=== PATIENT | female | born 1990 | race Caucasian/White ===

== ENCOUNTER → 2016-12-10 | Outpatient (CLI) | payer OTHER, SELFPAY ==
[2016-12-10 04:05] LABS: FREE T4 0.94 NG/DL (0.76-1.46)
[2016-12-12 10:44] LABS: PROLACTIN 5.5 NG/ML
[2016-12-12 10:45] LABS: LUTEINIZING HORMONE 0.8 mIU/mL
[2016-12-12 10:46] LABS: ESTRADIOL < 19.0 PG/ML; FOLLICLE STIMULATING HORMONE 2.7 mIU/mL
== END ==
LOC: M LAB 02:10
PROVIDERS: ATTEND Advanced Practice Midwife
DX: N92.0 Excessive and frequent menstruation with regular cycle (principal)

== ENCOUNTER → 2016-12-31 | Outpatient (CLI) | payer OTHER | LOC: M LAB 08:59 | PROVIDERS: ATTEND Advanced Practice Midwife | DX: N92.0 Excessive and frequent menstruation with regular cycle (principal) ==

== ENCOUNTER → 2017-10-20 | Outpatient (REF) | payer BC | LOC: M LAB REF 12:06 | DX: R05 Cough (principal) | CPT/HCPCS: 87633 ==

== ENCOUNTER → 2021-12-15 | Outpatient (CLI) | payer BC | LOC: M LABSMTC 11:28 | PROVIDERS: ATTEND Pediatrics | DX: Z20.822 Contact with and (suspected) exposure to COVID-19 (principal) | CPT/HCPCS: C9803; U0003 ==

== ENCOUNTER → 2024-09-09 | Outpatient (CLI) | payer OTHER | LOC: M SOG 07:51 | PROVIDERS: ATTEND Physician Assistant | DX: M25.561 Pain in right knee (principal) ==